=== PATIENT | female | born 1960 | race Caucasian/White ===

== ENCOUNTER 2017-08-28 17:53 | Inpatient (IN) | payer OTHER, MEDICAID ==
[~2017-08-28] VITALS: Ht 177.8 cm; Wt 117.0 kg
[2017-08-28 18:02] VITALS: BP 130/79
[2017-08-28] MEDS ORDERED: FLEXERIL PO (18:12)
[2017-08-28 19:14] LABS: ABSOLUTE BASOPHILS 0.1 thou/uL (0.0-0.2); ABSOLUTE EOSINOPHILS 0.1 thou/uL (0.0-0.7); ABSOLUTE MONOCYTES 0.9 thou/uL (0.0-1.2); BASOPHILS 0.8 %; EOSINOPHILS 0.4 %; HEMATOCRIT 45.1 % (37.0-47.0); MCH 30.4 pg (26.0-34.0); MCHC 33.3 g/dL (28.0-37.0); MCV 91.3 fL (80.0-100.0); MPV 7.6 fl. (7.2-11.1); NUCLEATED RBCS 0 /100WBC; PLATELET COUNT* 332 thou/uL (150-400); POLYS 82.8 %; RBC 4.94 mil/uL (4.20-5.00); RDW-CV 13.5 % (10.5-14.5); WBC 18.1 thou/uL (4.0-11.0)
[2017-08-28 19:22] LABS: APTT 24.3 Seconds (25.0-31.3); PROTIME 9.8 Seconds (9.20-11.50)
[2017-08-28 19:23] LABS: ANION GAP 13 mmol/L (7-16); BUN 29 mg/dL (7-18); CALCIUM 9.3 mg/dL (8.5-10.1); CHLORIDE 103 mmol/L (98-107); CO2 23 mmol/L (21-32); GLUCOSE 124 mg/dL (70-99); POTASSIUM 3.5 mmol/L (3.5-5.1); SODIUM 139 mmol/L (136-145)
[2017-08-28 19:30] LABS: ALBUMIN 3.6 g/dL (3.4-5.0); ALKALINE PHOSPHATASE 116 U/L (46-116); LIPASE 1153 U/L (73-393); SGOT 24 U/L (15-37); SGPT 24 U/L (30-65); TOTAL BILIRUBIN 0.2 mg/dL (<0.1-1.0); TOTAL PROTEIN 8.5 g/dL (6.4-8.2); TROPONIN-I LEVEL <0.06 ng/mL (<0.06)
--- NOTE | 2017-08-28 19:43 | NUR ---
PT PULLS 2ND IV OUT, NEW ONE STARTED.
[2017-08-28 19:57] LABS: SALICYLATE 3.1 mg/dL (2.8-20.0)
[2017-08-28 19:58] LABS: ACETAMINOPHEN < 2 ug/mL (10-30)
--- NOTE | 2017-08-28 20:11 | NUR ---
PT UNABLE TO STAY ON NEUROLOGY SPECIALIST, THRASHING AROUND.
--- NOTE | 2017-08-28 20:43 | NUR ---
BACK FROM CAT SCAN.
[2017-08-28 21:51] LABS: URINE BILIRUBIN NEGATIVE (Negative); URINE BLOOD NEGATIVE (Negative); URINE CLARITY CLEAR; URINE COLOR YELLOW; URINE GLUCOSE-RANDOM NEGATIVE (Negative); URINE KETONES NEGATIVE (Negative); URINE LEUKOCYTES NEGATIVE (Negative); URINE NITRITE NEGATIVE (Negative); URINE PROTEIN NEGATIVE (Negative); URINE UROBILINOGEN 0.2 E.U./dl (0.2-1.0)
[2017-08-28 21:59] LABS: AMP/METHAMP Negative (Negative); BARBITURATES Negative (Negative); BENZODIAZEPINES Negative (Negative); COCAINE Negative (Negative); METHADONE Negative (Negative); OPIATES Negative (Negative); PCP Negative (Negative); THC POSITIVE (Negative)
[2017-08-28 22:16] VITALS: BP 134/77
[2017-08-28 22:58] VITALS: BP 170/79
--- NOTE | 2017-08-29 03:55 | NUR ---
PATIENT ARRIVED ON UNIT AT APPROX 2209. ALERT AND ORIENTED TIMES FOUR ON ADMISSION. PATIENT ABLE TO MOVE SELF TO HOSPITAL BED. HEART MONITOR WAS ATTACHED, IV FLUIDS STARTED PER ELY AND CRANE HOIST OR LIFT OPERATOR ASSESSMENT COMPLETED DOCUMENTED. PATIENT FELL ASLEEP TOWARDS THE END OF ASSESSMENT. WHEN PATIENT AWAKENED, SHE WAS OBSERVED MOVING AROUND IN BED. ROCKING SIDE TO SIDE AND MOVING LEGS. PATIENT STATED "I HAVE TO PEE". EDUCATION COMPLETED THAT THERE WAS A CATHETER IN PLACE AT THIS TIME. PATIENT VERY INSISTENT THAT SHE GET UP AND SIT ON THE TOILET. VERY UNSAFE, ATTEMPTING MULTIPLE TIMES TO GET OUT OF BED. FALL RISK PRECAUTIONS IN PLACE WITH THE EXCEPTION OF YELLOW SOCKS, WHICH THE PATIENT REFUSES TO WEAR. PATIENT STATED TO SEVERAL PATIENT CARE STAFF "I DON'T WANT TO GO THROUGH FENTANYL WITHDRAWL AGAIN" AND "THIS FEELS LIKE WITHDRAWING FROM FENTANYL" PATIENT EDUCATED THAT SHE HAS FENTANYL THAT SHE CAN GET EVERY 2 HOURS AND THAT THIS RN HAS BEEN GIVING IT TO HER AT APPROX THAT TIME LAPSE. HOURLY ROUNDING COMPLETED DOCUMENTED. PETERSON CATHETER REMOVED THE PATIENT ATTEMPTING TO GET OUT OF BED WITH CATHETER STILL ATTACHED TO BED FRAME AND TUGGING AT CATHETER. SAFETY ISSUE NOTED WITH THESE ACTIONS. PATIENT WILL CALL OUT TO USE THE RESTROOM AND WILL ALSO PULL THE CALL LIGHT WHILE IN THE RESTROOM. DOES NOT STAND UPRIGHT BUT WILL RUN TO THE RESTROOM, IS AWARE TO TAKE IV POLE WITH HER TO THE RESTROOM.
[2017-08-29 04:00] VITALS: BP 176/96
--- NOTE | 2017-08-29 05:44 | NUR ---
PATIENT CONTINUED TO ROLL AROUND ON THE BED AND ROLLING FROM SIDE TO SIDE. MAONING IN BED. USES CALL LIGHT APPROPRIATELY. STATES "I USE OXYCODONE AND FENTANYL AT HOME." USES CANE AND WALKER AT HOME. "I AM NOT GETTING ENOUGH PAIN MEDS" REPEATED MULTIPLE TIMES THROUGH SHIFT. ABLE TO AMBULATE TO THE RESTROOM WITH STB. URGENCY NOTED AND PATIENT WILL ATTEMPT TO GET OUT OF BED SELF. FALL RISK PRECAUTIONS IN PLACE. REFUSES YELLOW SOCKS" HOURLY ROUNDING AND NURSING ASSESSMENT COMPLETED DOCUMENTED. WILL CONTINUE TO MONITOR.
[2017-08-29 08:00] VITALS: BP 194/98
[2017-08-29 12:13] VITALS: BP 165/89
[2017-08-29] MEDS ORDERED: XANAX 0.5 MG0.5 MG PO (12:27)
[2017-08-29] MEDS ORDERED: PROVIGIL 200 M200 M1 PO (12:28)
[2017-08-29] MEDS ORDERED: EFFEXOR XR75 MG PO (12:30)
[2017-08-29] MEDS ORDERED: TOPROL XL25 MG PO (12:31)
[2017-08-29] MEDS ORDERED: DURAGESIC1 EAC3 TRANSDERM (12:33)
--- NOTE | 2017-08-29 12:33 | NUR ---
Pt sound asleep when CM went to assess, will f/u later
[2017-08-29] MEDS ORDERED: PERCOCET 10-321 EACH PO (12:34)
[2017-08-29] MEDS ORDERED: SYNTHROID175 MCG PO (12:34)
--- NOTE | 2017-08-29 17:46 | NUR ---
ASSUMED CARE OF PT THIS AM ASSESSED AND DOCUMENTED. PT IS ON CARDIAC MONITER TRACING SR TO SR WITH 1ST DEGREE. PT WAS WRITHING ON THE BED MOST OF THE MORNING AND EARLY AFTERNOON. SHE STATED HER PAIN WAS AGONIZING. CALLED DAUGHTER TO FIND OUT WHERE PT'S PHARMACY WAS. CALLED [facility] SPOKE WITH BARBIE SHE GAVE ME A MED LIST. ENTERED LIST AND PASSED ON TO DR GATES. ALSO HAVE A NEW ORDER FOR A NICOTINE PATCH PT SMOKES 1 TO 2 PACKS PER DAY. PT HAS DOSED OFF AND ON FOR THE LATTER PART OF SHIFT. SHE HAS PULLED OUT HER IV. I MADE 3 ATTEMPTS WELL CHACORTA BACK. SPOKE WITH TAMARA Pedroza AND HE WILL TRY AND GET TO. PT REMOVES HER O2 OFTEN. SHE REFUSED HER FLU SHOT. GAVE PT AN ICEPACK X2 AND EDUCATED ON PAIN. PT NOT WILLING TO LEARN. HOURLY ROUNDING COMPLETE. PT IS NOW ON A CLEAR LIQUID DIET.
[2017-08-29 20:00] VITALS: BP 121/72
--- NOTE | 2017-08-29 21:00 | NUR ---
ASSUMED PATIENT CARE AT 1900. SIDE REPORT. PATIENT DROWSY AND DIFFICULT TO WAKE. SR ON TELE. ROOM AIR. ACUTE OPIOD WITHDRAWAL SECONDARY TO NARCAN. RESTARTED SOME NARCOTICS. HOURLY ROUNDING AND FALL PRECAUTIONS IN PLACE. WILL CONTINUE TO MONITOR.
[2017-08-30] VITALS (8 sets, daily range): BP systolic 139–190; BP diastolic 64–108
--- NOTE | 2017-08-30 04:38 | NUR ---
PATIENT WITH PERIODIC ELEVATED BP. NOTIFIED HIMS. ORDER RECD FOR HYDRALAZINE. DR GATES STATES GIVE IV FENTANYL. CONCENR VOICED REGARDING SEDATION AND DRUG SEEKING. OK TO GIVE PAIN MAY BE CAUSING INCREASED BP. PRNS GIVEN PER EMAR. PATIENT STATES SHE FEELS LIKE SHE IS IN WITHDRAWAL. DENIES ILLICIT DRUG USE ASIDE FROM MARIJUANA. PATIENT STABLE. WILL CONTINUE TO MONITOR.
[2017-08-30 05:18] LABS: HEMATOCRIT 40.6 % (37.0-47.0); HEMOGLOBIN 13.1 gm/dL (12.0-15.0); MCH 29.8 pg (26.0-34.0); MCHC 32.3 g/dL (28.0-37.0); MCV 92.3 fL (80.0-100.0); MPV 7.7 fl. (7.2-11.1); RBC 4.4 mil/uL (4.20-5.00); RDW-CV 13.5 % (10.5-14.5); WBC 11.5 thou/uL (4.0-11.0)
[2017-08-30 06:03] LABS: ALBUMIN 3.3 g/dL (3.4-5.0); CALCIUM 8.7 mg/dL (8.5-10.1); CREATININE 0.6 mg/dL (0.6-1.3); MAGNESIUM 1.9 mg/dL (1.8-2.4); POTASSIUM 3.7 mmol/L (3.5-5.1); TOTAL BILIRUBIN 0.5 mg/dL (<0.1-1.0); TOTAL PROTEIN 7.1 g/dL (6.4-8.2)
--- NOTE | 2017-08-30 06:54 | NUR ---
BP MEDS GIVEN EARLY DUE TO ELEVATED BP. WILL CONTINUE TO MONITOR.
[2017-08-30] MEDS ORDERED: VALTREX 500 MG500 M1 PO (14:09)
[2017-08-31] VITALS: BP 145/68
[2017-08-31 04:00] VITALS: BP 133/63
--- NOTE | 2017-08-31 05:28 | NUR ---
PATIENT SLOWLY PROGRESSING TOWARDS GOAL. REMAINS CALM AND SLEEPING AT BEDSIDE. NO ACUTE HEMODYNAMIC CHANGES OVER NIGHT. ORIENT X4. ON 2L. PAIN MANAGEMENT PROVIDED. PT USING ICE PACKS IN HER LOWER BACK TO HELP WITH PAIN. WILL CONTINUE WITH ANTIBIOTIC THERAPY AND IV FLUIDS. FALL PRECAUTIONS IN PLACE. CALL LIGHT WITHIN REACH. WILL CONTINUE TO MONITOR CLOSELY.
[2017-08-31 08:00] VITALS: BP 153/72
[2017-08-31] MEDS ORDERED: FLAGYL500 MG PO (11:25)
--- NOTE | 2017-08-31 11:53 | NUR ---
ASSUMED PT CARE AT 0700 PT IS ALERT AND ORIENTED X 4 PT IS MORE AWAKE PT STATES SHE HAS PAIN IN LOWER BACK GAVE PT ICE PACK WHICH HAS BEEN HELPING PT HAS OXYCODONE SCHEDULED WHICH PT STATES HELPS, PT DENIES SOA ON 2L/NC WHICH PT DOES NOT WEAR AT HOME PT IS SR ON MONITOR, PT IS UP WITH SBA, PT IS DISCHARGING TODAY, STOPPED FLUIDS WILL CONTINUE TO MONITOR
[2017-08-31 12:00] VITALS: BP 184/87
[2017-08-31 12:49] VITALS: BP 153/72
--- NOTE | 2017-09-17 16:13 | CON ---
[address] [address] CONSULTATION Name: ANTELMO BOYD Room: [address] IN M.R.#: [id number] Admission: 08/28/17 Attend Phys: Carl Desouza Discharge: 08/31/17 Date of : 64 Report #: [id number] THIS REPORT FOR: //name// CC: Viji Causey DATE OF SERVICE: 08/29/2017 ADDENDUM CONSULT#: [id number] I have personally seen and examined the patient and reviewed labs and imaging. The patient presented with abdominal pain, history of constipation, leukocytosis and elevated lipase of 1100. She apparently had a colonoscopy by Dr. Bowman in 02/2017. Her findings are most probably suggestive of colonic ischemia. We will continue the IV antibiotics, which were initially started. Also continue IV hydration and recommend Relistor 12 mg daily. At some point, the patient will need repeat colonoscopy, which we will refer back to Dr. Bowman to complete. <ELECTRONICALLY SIGNED> By: Pedro Gregory MD 09/17/17 1613 1430 [id number] Gregory MD /nt
--- NOTE | 2017-09-17 16:13 | CON ---
[address] [address] CONSULTATION Name: ANTELOM BOYD Room: [address] IN .R.#: [id number] Admission: 08/28/17 Attend Phys: Carl Desouza Discharge: 08/31/17 Date of : 64 Report #: [id number] THIS REPORT FOR: //name// CC: Viji Yan DO Yrn Causey DICTATED BY: Alicia Hamilton [facility] DATE OF SERVICE: 08/29/2017 Please note at the time of this dictation, the patient was seen and physically examined by myself. REASON FOR CONSULTATION: Constipation, abdominal pain. HISTORY OF PRESENT ILLNESS: This is a 57-year-old female who called EMS because she was having abdominal pain and constipation. When they arrived, they felt the patient's altered mental status that was not well and could not get a baseline on her. They felt that she was in an overdose and removed her fentanyl patch and gave her some Narcan. Then once that happened, the patient began defecating everywhere and thrashing around and had stool all over her lower half. The patient states that she did notice some blood also in her stool. She is unable to tell me when the last time she went to the bathroom was, however. The patient is on chronic opioid therapy for what she states for her back and knee discomfort and is disabled. She does receive fentanyl patches and oxycodone regularly for her pain. She states she did have a colonoscopy. She thought a year ago, said that she had a polyp and that her colon was very twisted. She cannot recall where it was done or what was done with at this time. A call has been placed into her PCP, but unable to get through in their office and I have not received a call back from the on-call individual. She states she has never had an upper scope done and denies any nausea or vomiting at this time. ALLERGIES: SULFA. MEDICATIONS: From home include Xanax, modafinil, Effexor, metoprolol succinate, fentanyl, Percocet and levothyroxine. PAST MEDICAL HISTORY: Chronic back and knee pain, depression, hypothyroid and hypertension. PAST SURGICAL HISTORY: Negative. FAMILY HISTORY: [place] [address] CONSULTATION Name: ANTELMO BOYD Janet Room: [address]#: [id number] Admission: 08/28/17 Attend Phys: Carl Desouza Discharge: 08/31/17 Date of : 64 Report #: [id number] SOCIAL HISTORY: She lives alone. Denies any alcohol use. She smokes 2 packs of cigarettes per day and she does use marijuana. REVIEW OF SYSTEMS: Twelve-point review of systems is essentially negative except what is mentioned in the HPI. PHYSICAL EXAMINATION: VITAL SIGNS: Temperature 37, pulse 100, respirations 18, blood pressure 176/96. HEART: Regular rate and rhythm, somewhat tachycardic. LUNGS: Clear, but diminished. ABDOMEN: Soft with diffuse tenderness noted throughout. NEUROLOGIC: The patient is thrashing around the entire bed, very agitated and not willing to talk very much. LABORATORY DATA: Hemoglobin is 15, hematocrit 45.1, white count is 18.1, platelets 332. PT is 9.8, INR is 1. Sodium 139, potassium 3.5, chloride 103, CO2 of 23, BUN is 29, creatinine is 1, GFR is 58 and glucose is 124, lipase is 1153. Total bilirubin is 0.2, alkaline phosphatase 116, ALT 24, AST is 24. CT of the abdomen and pelvis showed just diffuse mural thickening of the colon, but negative for any stranding around the pancreas. IMPRESSION: 1. Abdominal pain, likely colonic ischemia. 2. Constipation. 3. Chronic opioid use. 4. Elevated lipase level. PLAN: 1. Continue her antibiotics, Flagyl and Rocephin. 2. We will get an abdominal x-ray to see if she still has a lot of stool. 3. We will start some Relistor 12 mg subQ. 4. If her abdominal x-ray is positive for stool, I will give her a dose of magnesium citrate. 5. IV fluids at 100 mL an hour. 6. Clear liquids. Thank you for allowing us to participate in this patient's care. Please do not hesitate to call with any questions in regard to this consult. ADDENDUM I have personally seen and examined the patient and reviewed labs and imaging. The patient presented with abdominal pain, history of constipation, leukocytosis and elevated lipase of 1100. She apparently had a colonoscopy by Dr. Bowman in 02/2017. Her findings are most probably suggestive of colonic ischemia. We will continue the IV antibiotics, which were initially started. Also continue [address] [place] [address] CONSULTATION Name: ANTELMO BOYD Room: [address] [facility] IN M.R.#: [id number] Admission: 08/28/17 Attend Phys: Carl Desouza Discharge: 08/31/17 Date of : 64 Report #: [id number] IV hydration and recommend Relistor 12 mg daily. At some point, the patient will need repeat colonoscopy, which we will refer back to Dr. Bowman to complete. <ELECTRONICALLY SIGNED> By: Pedro Gregory MD 09/17/17 1613 1119 [id number] Gregory MD /nt
== END 2017-08-31 16:30 | disposition home or self-care (01) | DRG 371 ==
LOC: M.ERS 17:53 → M.TBA-ER 21:02 → M.2W 21:02
PROVIDERS: Internal Medicine; Physician Assistant; ADMIT Internal Medicine
DX: A04.9 Bacterial intestinal infection, unspecified (principal); K85.90 Acute pancreatitis without necrosis or infection, unspecified; G93.40 Encephalopathy, unspecified; F11.23 Opioid dependence with withdrawal; K92.1 Melena; G89.29 Other chronic pain; F12.90 Cannabis use, unspecified, uncomplicated; R41.0 Disorientation, unspecified; M54.9 Dorsalgia, unspecified; M25.569 Pain in unspecified knee; E03.9 Hypothyroidism, unspecified; F32.9 Major depressive disorder, single episode, unspecified; I10 Essential (primary) hypertension; K59.00 Constipation, unspecified; F17.210 Nicotine dependence, cigarettes, uncomplicated; Z28.21 Immunization not carried out because of patient refusal; Z88.2 Allergy status to sulfonamides